=== PATIENT | female | born 1980 | race Caucasian/White ===

== ENCOUNTER 2017-10-21 18:56 | Emergency (ER) | payer OTHER ==
[~2017-10-21] VITALS: Ht 172.7 cm; Wt 54.0 kg
[~2017-10-21 18:56] MED LIST: BUPR150T3 PO; CEPH500C3 PO; LORT5TAB PO; QUET1TAB65 PO
[2017-10-21 19:47] VITALS: BP 136/71; PULSE 94; RESP 18; TEMP 98.2; O2SAT 98
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
== END 2017-10-21 21:30 ==
LOC: NEPD 18:56 → NEPF 21:30
DX: T76.21XA Adult sexual abuse, suspected, initial encounter (principal); F41.9 Anxiety disorder, unspecified; F32.9 Major depressive disorder, single episode, unspecified; F17.210 Nicotine dependence, cigarettes, uncomplicated
CPT/HCPCS: 99284

== ENCOUNTER 2018-09-21 06:03 | Observation (INO) ==
[2018-09-21] MEDS ORDERED: ceFAZolin 2 GM Premix Inj 2 GM/50 ML PIGGYBACK IV.SIG ONE (06:32)
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
[2018-09-21] MEDS ORDERED: Sod Chloride 0.9% Inj 1,000 ML IV.CONT SCH (06:45)
--- NOTE | 2018-09-21 06:49 | XR ---
EXAM DATE: 09/21/2018 6:46 AM EST AGE/SEX: 38 years / Female INDICATIONS: Shortness of breath status post fall. CLINICAL DATA: This is the patient's initial encounter. Patient reports that signs and symptoms have been present for 1 day and indicates a pain score of Nonresponsive. MEDICAL/SURGICAL HISTORY: Non-responsive. Non-responsive. COMPARISON: No prior exams available for comparison. FINDINGS: A single AP view of the chest demonstrates the lungs to be symmetrically aerated without evidence of mass, infiltrate or effusion. The cardiomediastinal contours are unremarkable. Osseous structures a re intact. CONCLUSION: No acute cardiopulmonary disease. Electronically signed by: Rene Young MD 09/21/2018 6:48 AM EST
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
[2018-09-21] MEDS ORDERED: Sod Chloride 0.9% Inj 1,000 ML IV.SIG ONE (07:58)
[2018-09-21 08:06] LABS: Baso % (Auto) 0.5 % (0.0-2.0); Eos % (Auto) 0.3 % (0.0-4.0); Hematocrit 33.3 % (35.0-46.0); Hemoglobin 10.6 gm/dL (11.6-15.3); Lymph # (Auto) 2.3 th/mm3 (1.0-4.8); Lymph % (Auto) 32.2 % (9.0-44.0); Mean Corpuscular HGB Conc 31.8 % (32.0-36.0); Mean Corpuscular Hemoglobin 25.1 pg (27.0-34.0); Mean Corpuscular Volume 78.8 fL (80.0-100.0); Mean Platelet Volume 6.5 fL (7.0-11.0); Mono # (Auto) 0.5 th/mm3 (0.0-0.9); Mono % (Auto) 7.5 % (0.0-8.0); Neut # (Auto) 4.2 th/mm3 (1.8-7.7); Neut % (Auto) 59.5 % (16.0-70.0); Platelet Count 326 th/mm3 (150-450); Red Blood Count 4.22 mil/mm3 (4.00-5.30); Red Cell Distribution Width 21.9 % (11.6-17.2); White Blood Count 7.1 th/mm3 (4.0-11.0)
[2018-09-21 08:16] LABS: Activated Partial Thrombo Time 25.5 sec (23.4-31.7); Prothrombin Time 9.7 sec (9.8-11.6)
[2018-09-21 08:26] LABS: Anion Gap 8 meq/L (5-15); Blood Urea Nitrogen 15 mg/dL (7-18); Calcium 8.8 mg/dL (8.5-10.1); Carbon Dioxide 25.6 meq/L (21.0-32.0); Chloride 106 meq/L (98-107); Glomerular Filtration Rate Greater Than 89 mL/min (>89); Glucose,Random 93 mg/dL (74-106); Potassium 3.7 meq/L (3.5-5.1); Sodium 140 meq/L (136-145)
--- NOTE | 2018-09-21 14:39 | P.HPIM ---
History of Present Illness Primary Care Physician: Patient is a 38-year-old female past medical history of brain tumor status post craniotomy at the age of 25 presenting to emergency department after a self- reported fall 1 day prior to admission. Patient reports being in her usual state of health and is unaware of the events leading to her fall but does report that she occasionally has difficulty ambulating and falls occasionally. Prior to her fall patient denied chest pain, shortness of breath, headache, numbness or tingling in the feet, back pain radiating down the leg, or dehydration symptoms including dizziness when standing up or moving from seated to standing position. Patient was unaware of hitting her head. Patient unaware of how she came to the hospital. Patient reports in her distant past having episodes of seizure but has never taken any medication or had follow-up for condition. Of note patient is believed to have drug use history and reports methamphetamine use in the past and most recently says she used 1-2 weeks ago but denied recent use. Patient also denied alcohol consumption. Patient without cardiac history. Patient without history of vision impairment. Patient denied prior issues of muscle weakness. Patient without complaints of vertigo. In the emergency department patient was found to have extensive facial swelling and lacerations which were sutured in emergency department. Patient underwent CAT scan of the head which was negative for intracranial pathology. EKG unremarkable for arrhythmia at this time. No evidence of hypoglycemia. Alcohol level unremarkable. Medication confirmed with patient and no medications known to cause dizziness or hypotension identified in her history. Emergency department has sent off urine and blood toxicology testing Diagnosis (1) Fall: (2) Drug abuse: (3) Laceration of lip without complication: (4) Sutured skin wound: [facility] Medical History Medical History UTI (urinary tract infection) (Acute) Surgical History Surgical History History of ankle surgery (Acute) Family History Family History Mother No problems noted. Social History Social History Substance History: No History of Abuse Second Hand Smoke Exposure: Yes Smoking Status: Current every day smoker Tobacco Type: Cigarettes How Often Do You Have a Drink Containing Alcohol: 2 to 3 times a week [facility] within the Last 8 Weeks: No Recent Out of Country Travel within the Last 8 Weeks: No Immunization History Tetanus Immunization: Unsure Medications and Allergies Allergies Allergy/AdvReac Type Severity Reaction Status Date / Time No Known Allergies Allergy Verified 09/21/18 06:18 Home Medications Medication Instructions Recorded Confirmed Type No Known Home Medications 09/21/18 09/21/18 History Active Medications: Active Medications Sodium Chloride (Ns Flush) 2 ml IV.FLUSH PRN PRN PRN Reason: FLUSH AFTER USING IV ACCESS Last Admin: 09/21/18 08:01 Dose: 2 ml Physical Exam Vital signs: Last Vital Signs Temp 98.4 F 09/21/18 06:16 Pulse 78 09/21/18 06:16 Resp 16 09/21/18 06:16 BP 144/86 H 09/21/18 06:16 Pulse Ox 100 09/21/18 07:59 Intake & Output 09/19/18 09/20/18 09/21/18 09/22/18 06:59 06:59 06:59 06:59 Intake Total 2049 Balance 2049 Weight 63.503 kg General: No acute distress, appears uncomfortable HEENT: Visible facial laceration over lip status post suturing. Swelling over right mandible and cheek region. EOMI, PERRLA Cardiovascular: S1/S2. No murmurs rubs or gallops noted. Respiratory: Clear to auscultation anteriorly and posteriorly, no wheezing, rales, or rhonchi. No intercostal muscle use Gastroenterology: Soft, nontender, nondistended, no guarding or rebound appreciated on physical examination. Positive bowel sounds Extremity: 6 cm laceration over right forearm. 2+ radial pulse bilaterally. No calf tenderness or edema Neurology: Sensation intact upper and lower extremity bilaterally. Power 5/5 throughout. No facial droop, no slurred speech. No focal deficits noted on examination. Results Labs CBC & Chem 7: 09/21/18 07:35 09/21/18 07:35 Imaging Impressions Chest X-Ray 09/21/18 06:32 CONCLUSION: No acute cardiopulmonary disease. Cervical Spine CT 09/21/18 06:33 CONCLUSION: 1. Negative trauma study. Face CT 09/21/18 06:33 CONCLUSION: 1. Soft tissue swelling and small radiopaque foreign bodies along the anterior mandible with apparent lacerations. 2. The upper central incisors appear broken. Head CT 09/21/18 06:33 CONCLUSION: 1. Negative trauma head CT. . Caprini VTE Risk Assessment Caprini VTE Risk Assessment: No/Low Risk (score <= 1) Caprini Risk Assessment Model: Point Value = 1 Point Value = 2 Point Value = 3 Point Value = 5 Age 41-60 Minor surgery BMI > 25 kg/m2 Swollen legs Varicose veins or History of unexplained or recurrent spontaneous Oral contraceptives or hormone replacement Sepsis (< 1 month) Serious lung disease, including pneumonia (< 1 month) Abnormal pulmonary function Acute myocardial infarction Congestive heart failure (< 1 month) History of inflammatory bowel disease Medical patient at bed rest Age 61-74 Arthroscopic surgery Major open surgery (> 45 min) Laparoscopic surgery (> 45 min) Malignancy Confined to bed (> 72 hours) Immobilizing plaster cast Central venous access Age >= 75 History of VTE Family history of VTE Factor V Leiden Prothrombin [id number] Lupus anticoagulant Anticardiolipin antibodies Elevated serum homocysteine Heparin-induced thrombocytopenia Other congenital or acquired thrombophilia Stroke (< 1 month) Elective arthroplasty Hip, pelvis, or leg fracture Acute spinal cord injury (< 1 month) Prophylaxis Regimen: Total Risk Factor Score Risk Level Prophylaxis Regimen 0-1 Low Early ambulation 2 Moderate Order ONE of the following: *Sequential Compression Device (SCD) *Heparin 5000 units SQ BID 3-4 Higher Order ONE of the following medications: *Heparin 5000 units SQ TID *Enoxaparin/Lovenox 40 mg SQ daily (WT < 150 kg, CrCl > 30 mL/min) *Enoxaparin/Lovenox 30 mg SQ daily (WT < 150 kg, CrCl > 10-29 mL/min) *Enoxaparin/Lovenox 30 mg SQ BID (WT < 150 kg, CrCl > 30 mL/min) AND/OR *Sequential Compression Device (SCD) 5 or more Highest Order ONE of the following medications: *Heparin 5000 units SQ TID (Preferred with Epidurals) *Enoxaparin/Lovenox 40 mg SQ daily (WT < 150 kg, CrCl > 30 mL/min) *Enoxaparin/Lovenox 30 mg SQ daily (WT < 150 kg, CrCl > 10-29 mL/min) *Enoxaparin/Lovenox 30 mg SQ BID (WT < 150 kg, CrCl > 30 mL/min) AND *Sequential Compression Device (SCD) Assessment and Plan (1) Fall: Code(s): W19.XXXA - Unspecified fall, initial encounter Status: Acute (2) Drug abuse: Code(s): F19.10 - Other psychoactive substance abuse, uncomplicated Status: Acute (3) Laceration of lip without complication: Code(s): S01.511A - Laceration without foreign body of lip, initial encounter Status: Acute (4) Sutured skin wound: Code(s): T14.8XXA - Other injury of unspecified body region, initial encounter Status: Acute Plan Musculoskeletal: Fall I suspect patient's fall is likely secondary to toxic ingestion of illicit substance. We will follow-up on testing for blood tox as alcohol levels in urine were negligible. Laboratory testing for hemoglobin, BUN, creatinine, and glucose concentrations were reviewed to rule out anemia, dehydration, and evidence which could be concerning for neuropathy related to possible diabetes. We will check serum 25 vitamin D to rule out deficiency which may require supplementation. There is no proven value of routinely ordering Holter monitoring in patients with falling. No evidence of murmur on examination will defer echocardiogram at this time. Imaging results reviewed via EMR in all negative. CAT scan of brain negative E force drug monitoring to determine patient's prior history of pain medication use Pain control: NSAID medication for anti-inflammatory properties given fall and swelling noted on physical examination. For now will limit narcotic use. Telemetry monitoring to rule out paroxysmal arrhythmia which could have contributed to fall Psychiatry: Drug misuse Patient extensively counseled on importance of drug abstinence. Patient did become defensive stating that she is not addicted to pills. Explained to patient that methamphetamine use increases her risk of multiple adverse health consequences and I will work with the social services manager and case management team to help offer her services once discharged Orthopedic: Facial laceration Patient with facial laceration sutured in emergency department. Upon discharge patient should follow-up with primary physician for removal of sutures within 5 days. - unclear vaccination history of tetanus. will give TDAP Healthy patient with minor wounds other than bite wounds will undergo laceration repair with sutures generally are not prescribed prophylactic antibiotics. CODE STATUS: Full code DVT prophylaxis: Ambulation Diet: Regular Disposition: Observation status to medical service Plan discussed with patient at the bedside. Monitor and likely be discharged as lethargy continues to improve by the morning
[2018-09-21] MEDS ORDERED: Diphtheria/Tetanus/Pertussis Vaccine Inj 0.5 ML Syringe IM ONE (15:10)
[2018-09-21] MEDS ORDERED: Acetaminophen 325 MG Tablet PO PRN (15:23)
[2018-09-21] MEDS ORDERED: Bisacodyl 10 MG Supp RECTAL PRN (15:23)
[2018-09-21] MEDS ORDERED: Ibuprofen 600 MG Tablet PO PRN (15:28)
[2018-09-21] MEDS: Ketorolac Inj 30 MG/ML (IVP) Vial IV.PUSH PRN (17:39)
--- NOTE | 2018-09-21 17:49 | ECG ---
Date Performed: 09/21/2018 Time Performed: 07:52:18 PTAGE: 38 years EKG: SINUS BRADYCARDIA WITH SINUS ARRHYTHMIA BORDERLINE ECG NO PREVIOUS TRACING DOCTOR: Juan Stanley Interpretating Date/Time 09/21/2018 17:45:36
[2018-09-21] MEDS: Senna/Docusate Sodium 8.6/50 MG Tablet PO SCH (21:46)
[2018-09-21 23:38] LABS: Amphetamine Screen,Urine Pos (Neg); Barbiturate Screen,Urine Neg (Neg); Cannabinoid Screen,Urine Neg (Neg); Cocaine Screen,Urine Neg (Neg)
[2018-09-21 23:39] LABS: Opiate Screen,Urine Neg (Neg)
[2018-09-22 07:19] VITALS: TEMP 97.7
[2018-09-22 07:43] LABS: Hematocrit 29.6 % (35.0-46.0); Hemoglobin 10.3 gm/dL (11.6-15.3); Mean Corpuscular HGB Conc 34.8 % (32.0-36.0); Mean Corpuscular Hemoglobin 26.8 pg (27.0-34.0); Mean Corpuscular Volume 76.9 fL (80.0-100.0); Mean Platelet Volume 6.7 fL (7.0-11.0); Platelet Count 318 th/mm3 (150-450); Red Blood Count 3.85 mil/mm3 (4.00-5.30); Red Cell Distribution Width 22.1 % (11.6-17.2); White Blood Count 8.2 th/mm3 (4.0-11.0)
[2018-09-22] MEDS: Ketorolac Inj 30 MG/ML (IVP) Vial IV.PUSH PRN (07:45)
[2018-09-22 07:58] LABS: Anion Gap 8 meq/L (5-15); Blood Urea Nitrogen 8 mg/dL (7-18); Calcium 8.1 mg/dL (8.5-10.1); Chloride 105 meq/L (98-107); Glomerular Filtration Rate Greater Than 89 mL/min (>89); Glucose,Random 91 mg/dL (74-106); Potassium 3.5 meq/L (3.5-5.1); Sodium 138 meq/L (136-145)
[2018-09-22] MEDS: Senna/Docusate Sodium 8.6/50 MG Tablet PO SCH (08:10)
--- NOTE | 2018-09-22 09:19 | P.PN ---
Subjective Interval history: F/u facial trauma. Upset that she is only receiving IV Toradol patient advised she did not sustain any fracture but will provide IV morphine for breakthrough pain. She is mildly orthostatic but was asymptomatic. Physical Exam Vital signs: Vital Signs 09/21/18 16:00 09/21/18 16:51 09/21/18 18:32 Temperature 99.3 F Pulse Rate 68 67 Respiratory Rate 14 16 15 Blood Pressure 124/78 189/96 H Pulse Oximetry 98 100 09/21/18 20:00 09/22/18 00:00 09/22/18 00:34 Temperature 99.4 F 99.2 F Pulse Rate 56 L 60 Respiratory Rate 18 16 Blood Pressure 125/77 175/99 H 142/78 H Pulse Oximetry 100 99 09/22/18 04:00 09/22/18 07:17 Temperature 99.2 F 97.7 F Pulse Rate 66 68 Respiratory Rate 16 12 Blood Pressure 156/78 H 131/85 Pulse Oximetry 99 100 Intake & Output 09/21/18 09/22/18 09/22/18 18:59 06:59 18:59 Intake Total 2049 Balance 2049 Intake: IV 2049 NS Inj 1,000 ML @ 1000 mls/hr 1000 / 1000 IV.CONT .Q1H WAYNE Rx#:[id number] NS Inj 1,000 ML @ Wide Open IV. 1000 / 1000 SIG BOLUS ONE Rx#:[id number] Ancef 2 GM Premix Inj 2 gm In 50 / 50 50 ml @ 100 mls/hr IV.SIG ONCE ONE Rx#:[id number] Other: # Voids 0 2 Narrative: General: No acute distress, appears uncomfortable HEENT: Visible facial laceration over lip status post suturing. Swelling over right mandible and cheek region. EOMI, PERRLA Cardiovascular: S1/S2. No murmurs rubs or gallops noted. Respiratory: Clear to auscultation anteriorly and posteriorly, no wheezing, rales, or rhonchi. No intercostal muscle use Gastroenterology: Soft, nontender, nondistended, no guarding or rebound appreciated on physical examination. Positive bowel sounds Extremity: 6 cm laceration over right forearm. 2+ radial pulse bilaterally. No calf tenderness or edema Neurology: Sensation intact upper and lower extremity bilaterally. Power 5/5 throughout. No facial droop, no slurred speech. No focal deficits noted on examination. Results - Labs CBC & Chem 7: 09/22/18 07:11 09/22/18 07:11 Laboratory Results - last 24 hr 09/21/18 09/22/18 09/22/18 23:09 07:11 07:11 WBC 8.2 RBC 3.85 L Hgb 10.3 L Hct 29.6 L MCV 76.9 L MCH 26.8 L MCHC 34.8 RDW 22.1 H Plt Count 318 MPV 6.7 L Sodium 138 Potassium 3.5 Chloride 105 Carbon Dioxide 25.0 Anion Gap 8 BUN 8 Creatinine 0.45 L Estimated GFR Greater than 89 Random Glucose 91 Calcium 8.1 L Urine Opiates Screen Neg Ur Barbiturates Screen Neg Ur Amphetamines Screen Pos H U Benzodiazepines Scrn Neg Urine Cocaine Screen Neg U Cannabinoids Screen Neg - Imaging ITS Impressions Chest X-Ray 09/21/18 06:32 CONCLUSION: No acute cardiopulmonary disease. Cervical Spine CT 09/21/18 06:33 CONCLUSION: 1. Negative trauma study. Face CT 09/21/18 06:33 CONCLUSION: 1. Soft tissue swelling and small radiopaque foreign bodies along the anterior mandible with apparent lacerations. 2. The upper central incisors appear broken. Head CT 09/21/18 06:33 CONCLUSION: 1. Negative trauma head CT. . - Procedures lip laceration repair Assessment and Plan - Assessment (1) Fall Code(s): W19.XXXA - Unspecified fall, initial encounter Status: Acute (2) Drug abuse Code(s): F19.10 - Other psychoactive substance abuse, uncomplicated Status: Acute (3) Laceration of lip without complication Code(s): S01.511A - Laceration without foreign body of lip, initial encounter Status: Acute (4) Sutured skin wound Code(s): T14.8XXA - Other injury of unspecified body region, initial encounter Status: Acute - Plan Musculoskeletal: Fall I suspect patient's fall is likely secondary to toxic ingestion of illicit substance. UDS positive for amphetamines. Check EEG history of seizure. We will check serum 25 vitamin D to rule out deficiency which may require supplementation. Trauma workup negative for fracture E force drug monitoring to determine patient's prior history of pain medication use, no records Pain control: NSAID medication for anti-inflammatory properties given fall and swelling noted on physical examination. For now will limit narcotic use. Telemetry monitoring to rule out paroxysmal arrhythmia which could have contributed to fall. This is benign -Mildly orthostatic, asymptomatic. Will give 1 L fluid over 4 hours and repeat orthostatic vital signs Psychiatry: Drug misuse Patient extensively counseled on importance of drug abstinence. Patient did become defensive stating that she is not addicted to pills. Explained to patient that methamphetamine use increases her risk of multiple adverse health consequences Orthopedic: Facial laceration Patient with facial laceration sutured in emergency department. Upon discharge patient should follow-up with primary physician for removal of sutures within 5 days. -s/p TDAP CODE STATUS: Full code DVT prophylaxis: Ambulation Diet: Regular Disposition: Observation status to medical service Discharge Planning: Discharge patient to home if negative EEG and repeat orthostatics improved Condition on discharge: Improved Regular Diet as tolerated Ad Suzie activity, no driving Rx written: Ibuprofen Follow-up with primary care physician (1) Fall Qualifiers: Encounter type: initial encounter Qualified Code(s): W19.XXXA - Unspecified fall, initial encounter (3) Laceration of lip without complication Qualifiers: Encounter type: initial encounter Qualified Code(s): S01.511A - Laceration without foreign body of lip, initial encounter
[2018-09-22] MEDS ORDERED: Potassium Bicarbonate 25 MEQ Effervescent Tablet PO ONE (09:20)
[2018-09-22] MEDS ORDERED: Acetaminophen 325 MG Tablet PO PRN (09:21)
[2018-09-22] MEDS ORDERED: Ketorolac Inj 30 MG/ML (IVP) Vial IV.PUSH PRN ×2 (09:21)
[2018-09-22] MEDS ORDERED: Morphine Inj 4 MG/ML Vial IV.PUSH PRN (09:21)
[2018-09-22] MEDS ORDERED: Ibuprofen 400 MG Tablet PO PRN (09:21)
[2018-09-22] MEDS ORDERED: Naloxone Inj 0.4 MG/ML Vial IV.PUSH PRN (09:21)
[2018-09-22 11:46] VITALS: BP 128/75; PULSE 91; RESP 16; O2SAT 94
[2018-09-22] MEDS ORDERED: Sod Chloride 0.9% Inj 1,000 ML IV.CONT SCH (12:00)
[2018-09-22] MEDS ORDERED: Morphine Sulfate Inj 2 MG/ML Vial IV.PUSH ONE (15:15)
--- NOTE | 2018-09-22 17:25 | MG ---
cc: Chato Mora MD EEG RECORD NUMBER: [id number] DESCRIPTION: Sleep state: Stage II in the beginning with spindles. Background theta delta frequencies. Good EEG variability reactivity, eye movement artifact. Bifrontal central delta bursts rapid eye movement suggestive of REM sleep occurring. A single EKG showing sinus rhythm. Limited driving with photic stimulation. INTERPRETATION: Normal awake, REM and non-REM sleep electroencephalogram. Clinical correlation. Chato Mora MD MG/ct , 05:00 PM , 05:04 PM
[2018-09-27 11:52] LABS: Vitamin D 1,25-Dihydroxy 64 pg/mL (18-72)
== END 2018-09-22 18:07 | disposition home or self-care (01) ==
LOC: NEDA 06:03 → NEPC 06:03 → NEPHCDU 16:31
PROVIDERS: ADMIT Internal Medicine; ATTEND Internal Medicine
DX: Z23 Encounter for immunization; F19.10 Other psychoactive substance abuse, uncomplicated; W01.0XXA Fall on same level from slipping, tripping and stumbling without subsequent striking against object, initial encounter; F17.210 Nicotine dependence, cigarettes, uncomplicated; S01.511A Laceration without foreign body of lip, initial encounter